=== PATIENT | male | born 1995 | race Caucasian/White ===

== ENCOUNTER 2018-08-25 15:22 | Inpatient (IN) | payer OTHER ==
[~2018-08-25] VITALS: Ht 172.7 cm; Wt 111.1 kg
[2018-08-25] MEDS ORDERED: PANTOPRAZOLE IV 80 MG in SOD CHLORIDE 0.9% 100 ML IV STA (16:24)
[2018-08-25] MEDS ORDERED: PANTOPRAZOLE IV 80 MG in SOD CHLORIDE 0.9% 100 ML IVPB STA (16:24)
[2018-08-25] MEDS ORDERED: MAGNESIUM SULFATE 2 GM, MULTIVITAMINS 10 ML, THIAMINE 100 MG, FOLIC ACID 1 MG in SOD CH... IV STA (16:27)
[2018-08-25] MEDS ORDERED: ONDANSETRON 4 MG INJ IV STA (16:27)
[2018-08-25] MEDS ORDERED: ALBU90AE INHALATION (17:21)
[2018-08-25] MEDS ORDERED: OCTREOTIDE 500 MCG in SOD CHLORIDE 0.9% 49 ML IV STA (17:54)
[2018-08-25] MEDS ORDERED: ONDANSETRON 4 MG INJ IV PRN ×2 (20:00→20:30)
[2018-08-25] MEDS ORDERED: ACETAMINOPHEN 325 MG TAB PO PRN ×2 (20:00→20:30)
[2018-08-25] MEDS ORDERED: BISACODYL (EC) 5 MG TAB PO PRN (20:30)
[2018-08-25] MEDS ORDERED: DOCUSATE SODIUM 100 MG CAP PO PRN (20:30)
[2018-08-25] MEDS ORDERED: OCTREOTIDE 1 MG in DEXTROSE 5% 95 ML IV SCH (20:30)
[2018-08-25] MEDS ORDERED: NACL 0.9% 3 ML SYG IV SCH (20:30)
[2018-08-25] MEDS ORDERED: LORAZEPAM 2 MG INJ IV PRN (22:00)
--- NOTE | 2018-08-25 22:54 | ERD ---
ER Documentation Chief Complaint Chief Complaint hematemesis x 2 today , melenas x 3 days, pt is alcoholic HPI This is a 23-year-old male with a past medical history of alcohol abuse. The patient indicates that for the past 3 days he has had very dark stools. He denies any abdominal pain. Indicates his last consumption of alcohol was 48 hours ago. He states that several hours prior to arrival he had a sudden onset of nausea. He then had 2 episodes of bright red hematemesis. He stated it was roughly 1 cup of blood that he vomited. He felt weak and lightheaded. He denies a headache. He denies any chest pain or pressure. He had no shortness of breath. He denies any palpitations but did state he felt very shaky. He states he is never had any history of alcohol withdrawal seizures. ROS All systems reviewed and are negative except as per history of present illness. Medications Home Meds Reported Medications Albuterol Sulfate (Proair Respiclick) 90 Mcg Aer.pow.ba, 1 PUFF INHALATION Q4 PRN for SHORTNESS OF BREATH, #1 BOTTLE 08/25/18 Allergies Allergies: Coded Allergies: No Known Allergy (Unverified , 08/25/18) PMhx/Soc Medical and Surgical Hx: pt denies Surgical Hx Hx Respiratory Disorders: Yes (asthma) Hx Alcohol Use: Yes Hx Substance Use: Yes Hx Tobacco Use: No Smoking Status: Never smoker Physical Exam Vitals Vital Signs Date Temp Pulse Resp B/P (MAP) Pulse Ox O2 O2 Flow FiO2 Time Delivery Rate 08/25/18 98.6 102 18 131/100 98 Room Air 20:03 (110) 08/25/18 105 16 125/99 97 Room Air 18:41 (108) 08/25/18 107 20 109/77 98 Room Air 18:00 (88) 08/25/18 111 20 126/92 100 Room Air 17:20 (103) 08/25/18 Nasal 2 16:53 Cannula 08/25/18 129 18 130/90 99 Room Air 16:49 (103) 08/25/18 98.1 132 18 146/98 99 15:29 (114) Physical Exam Constitutional:Well-developed. Well-nourished. HEENT:Normocephalic. Atraumatic.Pupils were equal round reactive to light. Moist mucous membranes.No tonsillar exudates. Conjunctival pallor Neck: No nuchal rigidity. No lymphadenopathy. No posterior cervical spine tenderness or step-offs. Respiratory: Not using accessory muscles of respiration.Lungs were clear to auscultation bilaterally. No rhonchi. No rales. No wheezing. Cardiovascular: Regular rate regular rhythm.No murmurs. No rubs were appreciated.S1, S2 normal. Distal pulses are palpable 2+ bilaterally. GI: Abdomen was soft. Hepatomegaly. Nontender. Non Distended. No pulsatile abdominal masses or bruits. No rebound. No guarding. Bowel sounds were present and normal. Rectal: Fecal occult blood test positive Muscle skeletal: Full range of motion of both the upper and lower extremities bi laterally.Normal muscle tone.No assymetrical calf tenderness or swelling. Skin: Pallor. No petechia, no purpura. No lesions on the palms or the soles of the feet. No maculopapular rash. NEURO: Patient was alert, awake, orientated x3.No facial droop. Gait observed and normal with no ataxia.Speech had regular rate and rhythm. No focal neurological deficits. [facility] Result Diagram: 08/25/18 1640 08/25/18 1640 Results 24 hrs Laboratory Tests Test 08/25/18 16:40 08/25/18 22:43 White Blood Count 13.6 10^3/ul Pending Red Blood Count 3.53 10^6/ul Pending Hemoglobin 10.7 g/dl Pending Hematocrit 30.8 % Pending Mean Corpuscular Volume 87.3 fl Pending Mean Corpuscular Hemoglobin 30.3 pg Pending Mean Corpuscular Hemoglobin Concent 34.7 g/dl Pending Red Cell Distribution Width 13.0 % Pending Platelet Count 189 10^3/UL Pending Mean Platelet Volume 11.7 fl Pending Immature Granulocytes % 0.700 % Neutrophils % 77.9 % Lymphocytes % 13.9 % Monocytes % 7.1 % Eosinophils % 0.1 % Basophils % 0.3 % Nucleated Red Blood Cells % 0.1 /100WBC Immature Granulocytes # 0.100 10^3/ul Neutrophils # 10.6 10^3/ul Lymphocytes # 1.9 10^3/ul Monocytes # 1.0 10^3/ul Eosinophils # 0.0 10^3/ul Basophils # 0.0 10^3/ul Nucleated Red Blood Cells # 0.0 10^3/ul Prothrombin Time 13.6 Sec Prothrombin Time Ratio 1.1 INR International Normalized Ratio 1.03 Activated Partial Thromboplast Time 24.4 Sec Urine Color [place]ERSON Urine Clarity CLEAR Urine pH 7.0 Urine Specific [place] 1.033 Urine Ketones TRACE mg/dL Urine Nitrite NEGATIVE mg/dL Urine Bilirubin NEGATIVE mg/dL Urine Urobilinogen NEGATIVE mg/dL Urine Leukocyte Esterase NEGATIVE Tami/ul Urine Hemoglobin NEGATIVE mg/dL Urine Glucose NEGATIVE mg/dL Urine Total Protein NEGATIVE mg/dl Sodium Level 139 mmol/L Potassium Level 4.2 mmol/L Chloride Level 103 mmol/L Carbon Dioxide Level 28 mmol/L Anion Gap 8 Blood Urea Nitrogen 24 mg/dl Creatinine 0.89 mg/dl Est Glomerular Filtrat Rate mL/min > 60 mL/min Glucose Level 134 mg/dl Calcium Level 9.6 mg/dl Total Bilirubin 1.4 mg/dl Direct Bilirubin 0.00 mg/dl Indirect Bilirubin 1.4 mg/dl Aspartate Amino Transf (AST/SGOT) 88 IU/L Alanine Aminotransferase (ALT/SGPT) 100 IU/L Alkaline Phosphatase 79 IU/L Troponin I < 0.012 ng/ml Total Protein 7.9 g/dl Albumin 4.3 g/dl Globulin 3.60 g/dl Albumin/Globulin Ratio 1.19 Amylase Level 73 U/L Lipase 95 U/L Urine Opiates Screen NEGATIVE Urine Barbiturates NEGATIVE Urine Amphetamines Screen NEGATIVE Urine Benzodiazepines Screen Negative Urine Cocaine Screen NEGATIVE Urine Cannabinoids NEGATIVE Ethyl Alcohol Level < 10.0 mg/dl Current Medications Medications Dose Sig/Rina Start Time Status Last (Trade) Ordered Route PRN Stop Time Admin Dose Reason Admin Pantoprazole 100 ml @ ONCE STAT 08/25/18 DC 08/25/18 80 mg/Sodium 400 mls/hr IVPB 16:24 08/25/18 17:19 Chloride 16:38 Pantoprazole 100 ml @ ONCE STAT 08/25/18 08/25/18 80 mg/Sodium 10 mls/hr IV 16:24 18:16 Chloride 08/26/18 02:23 Magnesium 1,015.2 ml Q2H2M STAT 08/25/18 DC 08/25/18 Sulfate 2 @ 500 mls/ IV 16:27 08/25/18 17:39 gm/ hr 18:28 Multivitamins 10 ml/Thiamine HCl 100 mg/Folic Acid 1 mg/Sodium Chloride Ondansetron 4 mg ONCE STAT 08/25/18 DC 08/25/18 HCl (Zofran IV 16:27 08/25/18 17:19 Inj) 16:28 Octreotide 50 ml @ 5 ONCE STAT 08/25/18 08/25/18 Acetate 500 mls/hr IV 17:54 17:54 mcg/ Sodium 08/26/18 03:53 Chloride Ondansetron 4 mg ER BRIDGE 08/25/18 HCl (Zofran PRN IV 20:00 Inj) NAUSEA/VOMITI 08/26/18 19:59 NG 650 mg ER BRIDGE 08/25/18 Acetaminophen PRN PO 20:00 (Tylenol .MILD PAIN 08/26/18 19:59 Tab) 1-3 OR TEMP Sodium 1,000 ml @ Q20H IV 08/25/18 Chloride 50 mls/hr 23:00 IV Flush 3 ml PER 08/25/18 (NS 3 ml) PROTOCOL IV 20:30 Ondansetron 4 mg Q6H PRN 08/25/18 HCl (Zofran IV 20:30 Inj) NAUSEA/VOMITI NG 650 mg Q6H PRN 08/25/18 Acetaminophen PO .PAIN 1-3 20:30 (Tylenol OR TEMP Tab) Docusate 100 mg Q12H PRN 08/25/18 Sodium PO 20:30 (Colace) .CONSTIPATION Bisacodyl 5 mg DAILY PRN 08/25/18 (Dulcolax) PO 20:30 .CONSTIPATION Pantoprazole 100 ml @ Q10H IV 08/26/18 80 mg/Sodium 10 mls/hr 04:00 Chloride Octreotide 100 ml @ 5 Q20H IV 08/25/18 Acetate 1 mls/hr 20:30 mg/ Dextrose Thiamine 200 mg DAILY IM 08/26/18 HCl 09:00 (Vitamin B1) 08/31/18 08:59 Lorazepam 1 mg Q4H PRN 08/25/18 (Ativan) IV CONTROL 22:00 WITHDRAWAL SYMPTOMS Procedures/MDM The patient presented to the emergency department with a presentation of upper gastrointestinal bleeding. My differential diagnosis included but was not limited to peptic ulcer disease, gastric or esophageal erosions, gastritis, esophageal varices, Miriam-Zuniga tear, tumor or arteriovenous malformations. The patient has a history of alcohol abuse and high risk for esophageal varices. Therefore obtain a chest radiograph and there was no free air underneath the diaphragm. I did start the patient on Protonix and octreotide drips. He was given antiemetics. He was also given a banana bag to prevent alcohol withdrawal seizures. The patient's hemoglobin was 10.7. He did not have any active hematemesis while in the emergency department. 12 Lead EKG tracing ordered and reviewed by myself showed: Sinus tachycardia 109 bpm and no arrhythmia. TN interval normal. QRS duration normal. No ST segment elevation No ST segment depression. No changes consistent with acute ischemia. Patient will be admitted to the hospitalist. I did feel the patient was stable to go to the telemetry service Critical Care: Time: 55 minutes Treatments/Evaluations: Close monitoring and treatment of unstable vital signs, cardiorespiratory, and neurologic status, while maintaining tight balance of fluid, respiratory, and cardiac interventions. Time does not include performing any of the above billable procedures. Departure Diagnosis: Primary Impression: Hematemesis Nausea presence: with nausea Qualified Codes: K92.0 - Hematemesis Additional Impression: Alcohol withdrawal Complication of substance-induced condition: uncomplicated Qualified Codes: F10.230 - Alcohol dependence with withdrawal, uncomplicated Condition: Serious KATYA HAWK MD Aug 25, 2018 22:54
[2018-08-25] MEDS ORDERED: SOD CHLORIDE 0.9% 1,000 ML IV SCH (23:00)
--- NOTE | 2018-08-25 23:45 | HP ---
Date/Time of Note Date/Time of Note DATE: 08/25/18 TIME: 23:44 Assessment/Plan VTE Prophylaxis SCD applied (from Nsg): Yes Pharmacological prophylaxis: NA/contraindicated Pharm contraindication: low risk/ambulating Lines/Catheters IV Catheter Type (from Nrsg): Saline Lock Assessment/Plan Hospital Course This is a 23-year-old male being admitted to the telemetry floor for: #1 acute GI bleed: Patient did have episodes of hematemesis and dark stools. Suspect likely secondary to alcohol use/peptic ulcer disease. Will keep the patient n.p.o. Continue Protonix and octreotide drip. CBC every 6 hours. Coagulation studies are within acceptable values. Type and screen. Will consult GI . #2 transaminitis: Liver ultrasound shows fatty liver, will monitor liver function test. Will check hepatitis studies. #3 EtOH abuse: Patient has a heavy drinking history. He did receive banana bag in the emergency department. Thiamine, multivitamin, folate daily. PRN Ativan for withdrawal symptoms. Consider Librium. #4 Mild dehydration: IV fluid hydration #5 normocytic anemia: Suspect secondary to underlying alcohol use, GI bleed. Will check iron stores. #6 DVT GI prophylaxis: SCDs, Protonix drip Further treatment strategy will be implemented as per the clinical course. Result Diagram: 08/25/18 2243 08/25/18 1640 Results 24hrs Laboratory Tests Test 08/25/18 16:40 08/25/18 22:43 White Blood Count 13.6 H 14.0 H Red Blood Count 3.53 L 3.11 L Hemoglobin 10.7 L 9.2 L Hematocrit 30.8 L 27.6 L Mean Corpuscular Volume 87.3 88.7 Mean Corpuscular Hemoglobin 30.3 29.6 Mean Corpuscular Hemoglobin Concent 34.7 33.3 Red Cell Distribution Width 13.0 13.2 Platelet Count 189 157 Mean Platelet Volume 11.7 H 11.2 H Immature Granulocytes % 0.700 H 0.900 H Neutrophils % 77.9 H 76.4 Lymphocytes % 13.9 L 14.4 L Monocytes % 7.1 8.0 Eosinophils % 0.1 0.1 Basophils % 0.3 0.2 Nucleated Red Blood Cells % 0.1 H 0.0 Immature Granulocytes # 0.100 H 0.120 H Neutrophils # 10.6 H 10.7 H Lymphocytes # 1.9 2.0 Monocytes # 1.0 H 1.1 H Eosinophils # 0.0 0.0 Basophils # 0.0 0.0 Nucleated Red Blood Cells # 0.0 0.0 Prothrombin Time 13.6 Prothrombin Time Ratio 1.1 INR International Normalized Ratio 1.03 Activated Partial Thromboplast Time 24.4 Urine Color [place] Urine Clarity CLEAR Urine pH 7.0 Urine Specific [place] 1.033 H Urine Ketones TRACE A Urine Nitrite NEGATIVE Urine Bilirubin NEGATIVE Urine Urobilinogen NEGATIVE Urine Leukocyte Esterase NEGATIVE Urine Hemoglobin NEGATIVE Urine Glucose NEGATIVE Urine Total Protein NEGATIVE Sodium Level 139 Potassium Level 4.2 Chloride Level 103 Carbon Dioxide Level 28 Anion Gap 8 Blood Urea Nitrogen 24 H Creatinine 0.89 Est Glomerular Filtrat Rate mL/min > 60 Glucose Level 134 Calcium Level 9.6 Total Bilirubin 1.4 H Direct Bilirubin 0.00 Indirect Bilirubin 1.4 H Aspartate Amino Transf (AST/SGOT) 88 H Alanine Aminotransferase (ALT/SGPT) 100 H Alkaline Phosphatase 79 Troponin I < 0.012 Total Protein 7.9 Albumin 4.3 Globulin 3.60 H Albumin/Globulin Ratio 1.19 Amylase Level 73 Lipase 95 Urine Opiates Screen NEGATIVE Urine Barbiturates NEGATIVE Urine Amphetamines Screen NEGATIVE Urine Benzodiazepines Screen Negative Urine Cocaine Screen NEGATIVE Urine Cannabinoids NEGATIVE Ethyl Alcohol Level < 10.0 H HPI/ROS Admit Date/Time Admit Date/Time Hx of Present Illness Chief complaint: Hematemesis x1 episode, black stool x3 days This is a 23 male with history of alcohol abuse who presented to the emergency department with hematemesis. Patient reports that he had an episode of bright red blood today one episode which was significant amount with clots. He states that over the last 3 days he has also had dark stools. He did report that earlier he had pain along the lower abdomen. He does report that he felt weak and lightheaded but denied any headaches. Denies any chest pain. In the emergency department patient was started on octreotide as well as Protonix drip. His last drink was yesterday. Allergies: NKDA Medications: None ROS Const: As per HPI Eyes : No pain discharge or redness or change in visual acuity ENT: No pain, sore throat, congestion, congestion, dysphagia or discharge Respiratory: No shortness of breath, cough, sputum, wheezing, or pleuritic pain Cardiovascular: No chest pain, palpitation, PND, or edema GI : As per HPI Genitourinary: No dysuria, hematuria, flank pain , discharge or CVA tenderness Musculoskeletal: No joint pain, back pain, neck pain, restricted range of motion in neck or joints Skin: No rash, bruising or hives Neuro: No headache, dizziness, syncope, seizure, focal weakness Endocrine: No polyuria, polydipsia, temperature intolerance Psych: No hallucination, depression, anxiety or suicidal ideation PMH/Family/Social Past Medical History Asthma Medications Current Medications Pantoprazole 80 mg/Sodium Chloride 100 ml @ 10 mls/hr ONCE STAT IV Last administered on 08/25/18at 18:16; Admin Dose 10 MLS/HR; Start 08/25/18 at 16:24; Stop 08/26/18 at 02:23 Octreotide Acetate 500 mcg/ Sodium Chloride 50 ml @ 5 mls/hr ONCE STAT IV Last administered on 08/25/18at 17:54; Admin Dose 5 MLS/HR; Start 08/25/18 at 17:54; Stop 08/26/18 at 03:53 Ondansetron HCl (Zofran Inj) 4 mg ER BRIDGE PRN IV NAUSEA/VOMITING; Start 08/25/18 at 20:00; Stop 08/26/18 at 19:59 Acetaminophen (Tylenol Tab) 650 mg ER BRIDGE PRN PO .MILD PAIN 1-3 OR TEMP; Start 08/25/18 at 20:00; Stop 08/26/18 at 19:59 Sodium Chloride 1,000 ml @ 50 mls/hr Q20H IV Last administered on 08/25/18at 23:03; Admin Dose 50 MLS/HR; Start 08/25/18 at 23:00 IV Flush (NS 3 ml) 3 ml PER PROTOCOL IV ; Start 08/25/18 at 20:30 Ondansetron HCl (Zofran Inj) 4 mg Q6H PRN IV NAUSEA/VOMITING; Start 08/25/18 at 20:30 Acetaminophen (Tylenol Tab) 650 mg Q6H PRN PO .PAIN 1-3 OR TEMP; Start 08/25/18 at 20:30 Docusate Sodium (Colace) 100 mg Q12H PRN PO .CONSTIPATION; Start 08/25/18 at 20:30 Bisacodyl (Dulcolax) 5 mg DAILY PRN PO .CONSTIPATION; Start 08/25/18 at 20:30 Pantoprazole 80 mg/Sodium Chloride 100 ml @ 10 mls/hr Q10H IV ; Start 08/26/18 at 04:00 Octreotide Acetate 1 mg/ Dextrose 100 ml @ 5 mls/hr Q20H IV ; Start 08/25/18 at 20:30 Thiamine HCl (Vitamin B1) 200 mg DAILY IM ; Start 08/26/18 at 09:00; Stop 08/31/18 at 08:59 Lorazepam (Ativan) 1 mg Q4H PRN IV CONTROL WITHDRAWAL SYMPTOMS; Start 08/25/18 at 22:00 Coded Allergies: No Known Allergy (Unverified , 08/25/18) Past Surgical History Past Surgical Hx: no surgical history Family History Significant Family History: no pertinent family hx Social History Alcohol Use: heavy Smoking Status: Never smoker Drug Use: none Exam/Review of Systems Vital Signs Vitals Vital Signs Date Temp Pulse Resp B/P (MAP) Pulse Ox O2 O2 Flow FiO2 Time Delivery Rate 08/25/18 98.6 102 18 131/100 98 Room Air 20:03 (110) 08/25/18 2 16:53 Exam Exam General: Patient is a pleasant male currently lying in bed in no acute distress HEENT: Atraumatic, normocephalic. The pupils are equal, round and reactive. Extraocular motor are intact, mucous membranes dry Neck: Supple with full range of motion. No rigidity or meningismus Chest: Nontender Lungs: Clear to auscultation bilaterally no crackles rales or wheezing Heart: Normal S1-S2, Regular rhythm and rate. No murmur, S3, or S4 Abdomen: Obese, soft , nontender, nondistended , bowel sounds are present. No guarding no rebound tenderness , No masses or organomegaly. No costovertebral temporal angle mass Extremities: Normal to inspection, no edema no cyanosis Neurologic: Normal mental status, speech normal, cranial nerves II through XII are intact, motor and sensory are intact, no focal weakness Additional Comments PROCEDURE: US Abdomen. CLINICAL INDICATION: elevated LFTs TECHNIQUE: Multiple real-time images were acquired of the patient's abdomen and retroperitoneum utilizing a high resolution transducer. COMPARISON: None FINDINGS: The liver demonstrates increased echogenicity. The liver is normal in size and no focal solid lesions are seen. The liver measures 14.2 cm in length. The portal vein is patent with normal direction of flow. No intrahepatic biliary dilatation is seen. No gallstones are identified within the gallbladder. There is no pericholecystic fluid or gallbladder wall thickening. The common bile duct measures 3 mm in maximal dimension. The pancreas is not well seen due to overlying bowel gas. No free fluid is identified. The right kidney is normal in size, and demonstrate normal echogenicity and cortical thickness. The right kidney measures 9.3 cm in long dimension. There is no evidence of hydronephrosis. There are no kidney stones. IMPRESSION: Fatty infiltration of the liver.. RPTAT: AA .Baudilio Wayne MD, Date Time Electronically viewed and signed by .Baudilio Wayne MD, MD on 08/25/2018 22:22 .S/ CC: JARETH PIERRE [id number] PROCEDURE: XR Chest AP portable CLINICAL INDICATION: Upper GI bleed TECHNIQUE: An AP portable radiograph of the chest was submitted. COMPARISON: None. FINDINGS: Support Hardware: None Cardiovascular: The cardiovascular silhouette appears unremarkable. Lung Ortiz: The lung ortiz appear clear with no nodule, alveolar infiltrate, or interstitial prominence evident. Pleural Spaces: No pneumothorax or pleural effusion is identified. Osseous Structures: The osseous structures appear intact. Soft Tissues: The soft tissues appear generous. IMPRESSION: Unremarkable portable chest. Physician Kayla Date Time Electronically viewed and signed by Physician Kayla on 08/25/2018 16:52 RH/ CC: KATYA HAWK MD [id number] JARETH PIERRE Aug 25, 2018 23:45
[2018-08-26] VITALS (30 sets, daily range): BP systolic 96–137; BP diastolic 58–82; PULSE 86–105; RESP 13–25; Ht 172.7 cm; Wt 111.1 kg
[2018-08-26] MEDS ORDERED: LORAZEPAM 2 MG INJ IV PRN (05:30)
[2018-08-26] MEDS ORDERED: THIAMINE 200 MG INJ IM SCH (09:00)
[2018-08-26] MEDS ORDERED: ONDANSETRON 4 MG INJ IV STA (09:40)
[2018-08-26] MEDS ORDERED: ONDANSETRON INJ 8 MG in SOD CHLORIDE 0.9% 50 ML IV STA (09:53)
[2018-08-26] MEDS ORDERED: ACETAMINOPHEN 650 MG SUPP PR PRN (10:00)
--- NOTE | 2018-08-26 10:01 | PN ---
Date/Time of Note Date/Time of Note DATE: 08/26/18 TIME: 10:00 Assessment/Plan VTE Prophylaxis Risk score (from Ns)>0 risk: 1 SCD applied (from Ns): No SCD contraindicated: low risk/ambulating Pharmacological prophylaxis: NA/contraindicated Pharm contraindication: bleeding Lines/Catheters IV C[facility]ter Type [facility]from [facility]): Saline Lock Assessment/Plan Hospital Course SUBJECTIVE: Lying in bed comfortably. No abdominal pain, nausea or vomiting. Patient did not have any further episode of hematemesis or black stool after admission. OBJECTIVE: Vital signs-see below PHYSICAL EXAM: Constitutional: Adequately built,not in acute distress. HEENT: Head atraumatic and normocephalic. Eyes: Extraocular muscles intact. Anicteric sclerae. Pupils equal bilaterally, reactive to light. NECK: Supple without lymph node. CHEST: Clear and good breath sounds equally. No wheezing. No rhonchi. HEART: S1, S2. Regular rate and rhythm. ABDOMEN: Soft/non tender with no rebound tenderness. Bowel sounds were present. EXTREMITIES: No cyanosis, clubbing or edema. NEUROLOGIC: Alert and oriented x3. No focal deficit. No sensory deficit. PSYCHOSOCIAL: No signs of depression. INTEGUMENTARY: No open wounds. ASSESSMENT AND PLAN:23 yo M w/EtOH abuse, here with sudden onset of one episode of dark red vomiting W/1 episode of black loose stool yesterday... Hematemesis/Melena -r/o Acute upper GI bleed sources including esophageal varices/bleeding ulcers versus other in light of alcoholism -GI consult for consideration for stat EGD -Since patient did not have any further episodes of GI bleed and his H&H is stable, patient does not need to be continued on octreotide drip. Please note that patient did receive a full dose of octreotide in the emergency room. -Continue Protonix ggt -NPO Acute blood loss anemia, likely secondary to GIB -Hemoglobin fairly stable. Will repeat in 8 hours and if it is less than 8.0, will transfuse PRBC. -Add iron panel to a.m. labs and treat accordingly. Leukocytosis, likely reactive -Monitor Transaminase elevation, likely secondary to fatty infiltration of liver -Advised on alcohol cessation. -Continue to monitor -Obtain abdominal CT Anemia with EtOH abuse -Currently H&H fairly stable. Will continue monitoring. -Add iron panel to am labs. will give 1 iv Ferrlecit 2/2gib EtOH abuse -cessation advised. SW consult. DVT prophylaxis: SCDs. PUD prophylaxis: Protonix Disposition: Patient will need emergent EGD evaluation to rule out esophageal varices. Patient with stable H&H, no further GI bleed, as such he can be downgraded back to medical surgical floor. Patient to continue Protonix drip. Left message to GI financial sales consultant for considering patient for EGD evaluation today. Patient was seen in collaboration with Dr. Bueno. Result Diagram: 08/26/18 0545 08/26/18 0546 Results 24hrs Laboratory Tests Test 08/25/18 16:40 08/25/18 22:43 08/26/18 05:45 08/26/18 05:46 White Blood Count 13.6 H 14.0 H 10.5 # Red Blood Count 3.53 L 3.11 L 2.99 L Hemoglobin 10.7 L 9.2 L 9.0 L Hematocrit 30.8 L 27.6 L 26.9 L Mean Corpuscular 87.3 88.7 90.0 Volume Mean Corpuscular 30.3 29.6 30.1 Hemoglobin Mean Corpuscular 34.7 33.3 33.5 Hemoglobin Concent Red Cell Distribution 13.0 13.2 13.2 Width Platelet Count 189 157 143 Mean Platelet Volume 11.7 H 11.2 H 11.2 H Immature Granulocytes 0.700 H 0.900 H 0.800 H % Neutrophils % 77.9 H 76.4 75.2 Lymphocytes % 13.9 L 14.4 L 15.5 Monocytes % 7.1 8.0 7.6 Eosinophils % 0.1 0.1 0.7 Basophils % 0.3 0.2 0.2 Nucleated Red Blood 0.1 H 0.0 0.0 Cells % Immature Granulocytes 0.100 H 0.120 H 0.080 H # Neutrophils # 10.6 H 10.7 H 7.9 H Lymphocytes # 1.9 2.0 1.6 Monocytes # 1.0 H 1.1 H 0.8 Eosinophils # 0.0 0.0 0.1 Basophils # 0.0 0.0 0.0 Nucleated Red Blood 0.0 0.0 0.0 Cells # Prothrombin Time 13.6 Prothrombin Time Ratio 1.1 INR International 1.03 Normalized Ratio Activated 24.4 Partial Thromboplast Time Urine Color GERSON Urine Clarity CLEAR Urine pH 7.0 Urine Specific [place] 1.033 H Urine Ketones TRACE A Urine Nitrite NEGATIVE Urine Bilirubin NEGATIVE Urine Urobilinogen NEGATIVE Urine Leukocyte NEGATIVE Esterase Urine Hemoglobin NEGATIVE Urine Glucose NEGATIVE Urine Total Protein NEGATIVE Sodium Level 139 140 Potassium Level 4.2 4.1 Chloride Level 103 106 Carbon Dioxide Level 28 28 Anion Gap 8 6 Blood Urea Nitrogen 24 H 22 H Creatinine 0.89 0.92 Est Glomerular Filtrat > 60 > 60 Rate mL/min Glucose Level 134 113 Calcium Level 9.6 8.6 Total Bilirubin 1.4 H 1.7 H Direct Bilirubin 0.00 0.00 Indirect Bilirubin 1.4 H 1.7 H Aspartate Amino 88 H 115 H Transf (AST/SGOT) Alanine 100 H 101 H Aminotransferase (ALT/ SGPT) Alkaline Phosphatase 79 57 Troponin I < 0.012 Total Protein 7.9 6.6 # Albumin 4.3 3.5 Globulin 3.60 H 3.10 Albumin/Globulin Ratio 1.19 1.12 Amylase Level 73 Lipase 95 Urine Opiates Screen NEGATIVE Urine Barbiturates NEGATIVE Urine Amphetamines NEGATIVE Screen Urine Benzodiazepines Negative Screen Urine Cocaine Screen NEGATIVE Urine Cannabinoids NEGATIVE Ethyl Alcohol Level < 10.0 H Hemoglobin A1c 5.1 Magnesium Level 2.4 Triglycerides Level 108 Cholesterol Level 174 LDL Cholesterol, 107 Calculated HDL Cholesterol 45 Cholesterol/HDL Ratio 3.8 Thyroid Stimulating 0.371 L Hormone (TSH) Hepatitis A Antibody POSITIVE H Total Hepatitis B Surface NEGATIVE Antigen Hepatitis B Surface NEGATIVE Antibody Hepatitis B Core NEGATIVE Total Antibody Hepatitis C Antibody NEGATIVE Exam/Review of Systems Exam Vitals Vital Signs Date Temp Pulse Resp B/P (MAP) Pulse Ox O2 O2 Flow FiO2 Time Delivery Rate 08/26/18 99.2 96 16 118/67 98 08:00 (84) 08/26/18 Room Air 05:53 08/25/18 2 16:53 Results Results 24hrs Laboratory Tests Test 08/25/18 16:40 08/25/18 22:43 08/26/18 05:45 08/26/18 05:46 White Blood Count 13.6 H 14.0 H 10.5 # Red Blood Count 3.53 L 3.11 L 2.99 L Hemoglobin 10.7 L 9.2 L 9.0 L Hematocrit 30.8 L 27.6 L 26.9 L Mean Corpuscular 87.3 88.7 90.0 Volume Mean Corpuscular 30.3 29.6 30.1 Hemoglobin Mean Corpuscular 34.7 33.3 33.5 Hemoglobin Concent Red Cell Distribution 13.0 13.2 13.2 Width Platelet Count 189 157 143 Mean Platelet Volume 11.7 H 11.2 H 11.2 H Immature Granulocytes 0.700 H 0.900 H 0.800 H % Neutrophils % 77.9 H 76.4 75.2 Lymphocytes % 13.9 L 14.4 L 15.5 Monocytes % 7.1 8.0 7.6 Eosinophils % 0.1 0.1 0.7 Basophils % 0.3 0.2 0.2 Nucleated Red Blood 0.1 H 0.0 0.0 Cells % Immature Granulocytes 0.100 H 0.120 H 0.080 H # Neutrophils # 10.6 H 10.7 H 7.9 H Lymphocytes # 1.9 2.0 1.6 Monocytes # 1.0 H 1.1 H 0.8 Eosinophils # 0.0 0.0 0.1 Basophils # 0.0 0.0 0.0 Nucleated Red Blood 0.0 0.0 0.0 Cells # Prothrombin Time 13.6 Prothrombin Time Ratio 1.1 INR International 1.03 Normalized Ratio Activated 24.4 Partial Thromboplast Time Urine Color GERSON Urine Clarity CLEAR Urine pH 7.0 Urine Specific [place] 1.033 H Urine Ketones TRACE A Urine Nitrite NEGATIVE Urine Bilirubin NEGATIVE Urine Urobilinogen NEGATIVE Urine Leukocyte NEGATIVE Esterase Urine Hemoglobin NEGATIVE Urine Glucose NEGATIVE Urine Total Protein NEGATIVE Sodium Level 139 140 Potassium Level 4.2 4.1 Chloride Level 103 106 Carbon Dioxide Level 28 28 Anion Gap 8 6 Blood Urea Nitrogen 24 H 22 H Creatinine 0.89 0.92 Est Glomerular Filtrat > 60 > 60 Rate mL/min Glucose Level 134 113 Calcium Level 9.6 8.6 Total Bilirubin 1.4 H 1.7 H Direct Bilirubin 0.00 0.00 Indirect Bilirubin 1.4 H 1.7 H Aspartate Amino 88 H 115 H Transf (AST/SGOT) Alanine 100 H 101 H Aminotransferase (ALT/ SGPT) Alkaline Phosphatase 79 57 Troponin I < 0.012 Total Protein 7.9 6.6 # Albumin 4.3 3.5 Globulin 3.60 H 3.10 Albumin/Globulin Ratio 1.19 1.12 Amylase Level 73 Lipase 95 Urine Opiates Screen NEGATIVE Urine Barbiturates NEGATIVE Urine Amphetamines NEGATIVE Screen Urine Benzodiazepines Negative Screen Urine Cocaine Screen NEGATIVE Urine Cannabinoids NEGATIVE Ethyl Alcohol Level < 10.0 H Hemoglobin A1c 5.1 Magnesium Level 2.4 Triglycerides Level 108 Cholesterol Level 174 LDL Cholesterol, 107 Calculated HDL Cholesterol 45 Cholesterol/HDL Ratio 3.8 Thyroid Stimulating 0.371 L Hormone (TSH) Hepatitis A Antibody POSITIVE H Total Hepatitis B Surface NEGATIVE Antigen Hepatitis B Surface NEGATIVE Antibody Hepatitis B Core NEGATIVE Total Antibody Hepatitis C Antibody NEGATIVE Medications Medication Current Medications IV Flush (NS 3 ml) 3 ml PER PROTOCOL IV ; Start 08/25/18 at 20:30 Ondansetron HCl (Zofran Inj) 4 mg Q6H PRN IV NAUSEA/VOMITING; Start 08/25/18 at 20:30 Pantoprazole 80 mg/Sodium Chloride 100 ml @ 10 mls/hr Q10H IV ; Start 08/26/18 at 04:00 Lorazepam (Ativan) 1 mg Q2 PRN IV CONTROL WITHDRAWAL SYMPTOMS; Start 08/26/18 at 05:30 Multivitamins 10 ml/Thiamine HCl 100 mg/Folic Acid 1 mg/Sodium Chloride 1,011.2 ml @ 125 mls/ hr DAILY@09 IVPB ; Start 08/27/18 at 09:00; Status UNV Acetaminophen (Tylenol Supp) 650 mg Q6H PRN [place] t>101; Start 08/26/18 at 10:00 Ondansetron HCl 8 mg/Sodium Chloride 54 ml @ 216 mls/hr ONCE STAT IV ; Start 08/26/18 at 09:53; Stop 08/26/18 at 10:07 SHADI HUA NP Aug 26, 2018 10:01
[2018-08-26] MEDS: PANTOPRAZOLE IV 80 MG in SOD CHLORIDE 0.9% 100 ML IV SCH ×2 (10:50→14:00)
[2018-08-26] MEDS: MULTIVITAMINS 10 ML, THIAMINE 100 MG, FOLIC ACID 1 MG in SOD CHLORIDE 0.9% 1,000 ML IVPB SCH (11:12)
[2018-08-26] MEDS ORDERED: SOD CHLORIDE 0.9% 100 ML ONE (11:35)
[2018-08-26] MEDS ORDERED: IOHEXOL 300MG/ML 150 ML BTL ONE (11:35)
[2018-08-26] MEDS ORDERED: SOD FERRIC GLUC COMPLX 125 MG in SOD CHLORIDE 0.9% 100 ML IVPB ONE (12:00)
--- NOTE | 2018-08-26 13:57 | CONS ---
Assessment/Plan Assessment/Plan Hospital Course (Demo Recall) Summary Assessment and Plan: Assessment: Hematemesis/melena -Rule out PUD versus hemorrhagic gastritis versus Miriam-Zuniga tear versus esophageal varices-less likely Normocytic anemia- likely multiple factorial with acute blood loss 2/2 to above Transaminitis with indirect hyperbilirubinemia -Discriminant function less than 32 -Common bile duct within normal limits noted on abdominal ultrasound and CT scan Hepatic steatosis -Counseled on weight loss with diet, exercise EtOH abuse -Drinks six 12 oz beer per day -Counseled on alcohol cessation Obesity Plan: Keep n.p.o. Continue PPI drip EGD today Endoscopy - risks/benefits/alternatives/indications of procedure and sedation/an esthesia discussed with patient who states understanding and gives informed consent to proceed. PARQ held and questions were answered. Patient seen in collaboration with Dr. Platt CC: REGGIE PLATT MD ; Consultation Date/Type/Reason Admit Date/Time Date of Consultation: Aug 26, 2018 Type of Consult Gastroenterology Reason for Consultation Hematemesis/melena Requesting Provider: A Date/Time of Note DATE: 08/26/18 TIME: 13:49 Hx of Present Illness This is a 23-year-old male with past medical history of alcohol abuse drinks six 12oz beers per day for the past 4 years who presented to the hospital with complaints of melena x3 days and one episode of hematemesis yesterday. Hemoglobin noted on admission was 10.7 recheck today 8.6 with normocytic indices, INR is 1.03 with elevated LFTs AST greater than ALT and indirect bilirubin. A liver ultrasound was obtained showing fatty infiltration of the liver no gallstones are identified within the liver, there is no pericholecystic fluid or gallbladder wall thickening. The common bile duct measures 3 mm in maximal dimension additionally CT abdomen pelvis without contrast was obtained again showing hepatic steatosis no focal intrahepatic masses are identified. There is no intra-or extrahepatic biliary dilation. The gallbladder is unremarkable by CT criteria. At time evaluation patient denies nausea/vomiting including further episodes of hematemesis. He denies abdominal pain, constipation, diarrhea, or hematochezia. He has never had an upper endoscopy Review of Systems: [A 12 system, review was conducted and is negative except as noted in the HPI or here.] Past Medical History Home Meds Reported Medications Albuterol Sulfate (Proair Respiclick) 90 Mcg Aer.pow.ba, 1 PUFF INHALATION Q4 PRN for SHORTNESS OF BREATH, #1 BOTTLE 08/25/18 Medications Current Medications IV Flush (NS 3 ml) 3 ml PER PROTOCOL IV ; Start 08/25/18 at 20:30 Ondansetron HCl (Zofran Inj) 4 mg Q6H PRN IV NAUSEA/VOMITING; Start 08/25/18 at 20:30 Pantoprazole 80 mg/Sodium Chloride 100 ml @ 10 mls/hr Q10H IV Last administered on 08/26/18at 10:50; Admin Dose 10 MLS/HR; Start 08/26/18 at 04:00 Lorazepam (Ativan) 1 mg Q2 PRN IV CONTROL WITHDRAWAL SYMPTOMS; Start 08/26/18 at 05:30 Multivitamins 10 ml/Thiamine HCl 100 mg/Folic Acid 1 mg/Sodium Chloride 1,011.2 ml @ 125 mls/ hr DAILY@09 IVPB Last administered on 08/26/18at 11:12; Admin Dose 125 MLS/HR; Start 08/26/18 at 12:00 Acetaminophen (Tylenol Supp) 650 mg Q6H PRN [place] t>101; Start 08/26/18 at 10:00 Allergies: Coded Allergies: No Known Allergy (Unverified , 08/25/18) Past Surgical History Past Surgical Hx: no surgical history Social History Alcohol Use: heavy Smoking Status: Former smoker Drug Use: none Exam/Review of Systems Exam Vitals Vital Signs Date Temp Pulse Resp B/P (MAP) Pulse Ox O2 O2 Flow FiO2 Time Delivery Rate 08/26/18 96 12:00 08/26/18 99.2 16 118/67 98 08:00 (84) 08/26/18 Room Air 05:53 08/25/18 2 16:53 Exam PHYSICAL EXAMINATION: GENERAL: Well developed, well nourished, alert & oriented x 3, in no acute distress SKIN: No lesions, no stigmata chronic liver disease, no evidence of bleeding diathesis HEAD: Normocephalic, atraumatic, no tenderness. EYES: Pupils equal reactive to light and accommodation, full extraocular movements, sclera clear, non-icteric, no discharge. EARS/NOSE AND THROAT: Ears normal, nose normal, oropharynx normal, oral membr anes well hydrated without lesions. NECK: Supple, no masses CHEST: Inspection within normal limits. CARDIOVASCULAR: Heart: Regular rate and rhythm RESPIRATORY: Lungs clear to auscultation and percussion, no wheezing, no rubs GASTROINTESTINAL AND LIVER: Abdomen: Soft, non tenderness, non-distended, no hernias, no masses, no organomegaly, no ascites, no guarding, no rebound tenderness, normoactive bowel sounds. Rectal: Deferred. EXTREMITIES: No cyanosis, clubbing or edema. Results Result Diagram: 08/26/18 1138 08/26/18 0546 Results 24hrs Laboratory Tests Test 08/25/18 16:40 08/25/18 22:43 08/26/18 05:39 08/26/18 05:45 White Blood Count 13.6 H 14.0 H 10.5 # Red Blood Count 3.53 L 3.11 L 2.99 L Hemoglobin 10.7 L 9.2 L 9.0 L Hematocrit 30.8 L 27.6 L 26.9 L Mean Corpuscular 87.3 88.7 90.0 Volume Mean Corpuscular 30.3 29.6 30.1 Hemoglobin Mean Corpuscular 34.7 33.3 33.5 Hemoglobin Concent Red Cell 13.0 13.2 13.2 Distribution Width Platelet Count 189 157 143 Mean Platelet Volume 11.7 H 11.2 H 11.2 H Immature 0.700 H 0.900 H 0.800 H Granulocytes % Neutrophils % 77.9 H 76.4 75.2 Lymphocytes % 13.9 L 14.4 L 15.5 Monocytes % 7.1 8.0 7.6 Eosinophils % 0.1 0.1 0.7 Basophils % 0.3 0.2 0.2 Nucleated Red Blood 0.1 H 0.0 0.0 Cells % Immature 0.100 H 0.120 H 0.080 H Granulocytes # Neutrophils # 10.6 H 10.7 H 7.9 H Lymphocytes # 1.9 2.0 1.6 Monocytes # 1.0 H 1.1 H 0.8 Eosinophils # 0.0 0.0 0.1 Basophils # 0.0 0.0 0.0 Nucleated Red Blood 0.0 0.0 0.0 Cells # Prothrombin Time 13.6 Prothrombin Time 1.1 Ratio INR International 1.03 Normalized Ratio Activated 24.4 Partial Thromboplast Time Urine Color GERSON Urine Clarity CLEAR Urine pH 7.0 Urine Specific 1.033 H [place] Urine Ketones TRACE A Urine Nitrite NEGATIVE Urine Bilirubin NEGATIVE Urine Urobilinogen NEGATIVE Urine Leukocyte NEGATIVE Esterase Urine Hemoglobin NEGATIVE Urine Glucose NEGATIVE Urine Total Protein NEGATIVE Sodium Level 139 Potassium Level 4.2 Chloride Level 103 Carbon Dioxide Level 28 Anion Gap 8 Blood Urea Nitrogen 24 H Creatinine 0.89 Est Glomerular > 60 Filtrat Rate mL/min Glucose Level 134 Calcium Level 9.6 Total Bilirubin 1.4 H Direct Bilirubin 0.00 Indirect Bilirubin 1.4 H Aspartate Amino 88 H Transf (AST/SGOT) Alanine 100 H Aminotransferase (AL T/SGPT) Alkaline Phosphatase 79 Troponin I < 0.012 Total Protein 7.9 Albumin 4.3 Globulin 3.60 H Albumin/Globulin 1.19 Ratio Amylase Level 73 Lipase 95 Urine Opiates Screen NEGATIVE Urine Barbiturates NEGATIVE Urine Amphetamines NEGATIVE Screen Urine Negative Benzodiazepines Screen Urine Cocaine Screen NEGATIVE Urine Cannabinoids NEGATIVE Ethyl Alcohol Level < 10.0 H Iron Level 44 Total Iron Binding 374 Capacity Percent Iron 12 L Saturation Ferritin 47.5 Hemoglobin A1c 5.1 Test 08/26/18 05:46 08/26/18 09:55 08/26/18 11:38 Sodium Level 140 Potassium Level 4.1 Chloride Level 106 Carbon Dioxide Level 28 Anion Gap 6 Blood Urea Nitrogen 22 H Creatinine 0.92 Est Glomerular > 60 Filtrat Rate mL/min Glucose Level 113 Calcium Level 8.6 Magnesium Level 2.4 Total Bilirubin 1.7 H Direct Bilirubin 0.00 Indirect Bilirubin 1.7 H Aspartate Amino 115 H Transf (AST/SGOT) Alanine 101 H Aminotransferase (AL T/SGPT) Alkaline Phosphatase 57 Total Protein 6.6 # Albumin 3.5 Globulin 3.10 Albumin/Globulin 1.12 Ratio Triglycerides Level 108 Cholesterol Level 174 LDL Cholesterol, 107 Calculated HDL Cholesterol 45 Cholesterol/HDL 3.8 Ratio Thyroid Stimulating 0.371 L Hormone (TSH) Hepatitis A Antibody POSITIVE H Total Hepatitis B Surface NEGATIVE Antigen Hepatitis B Surface NEGATIVE Antibody Hepatitis B Core NEGATIVE Total Antibody Hepatitis C Antibody NEGATIVE White Blood Count 9.9 Red Blood Count 2.90 L Hemoglobin 8.7 L 8.6 L Hematocrit 26.2 L 26.2 L Mean Corpuscular 90.3 Volume Mean Corpuscular 30.0 Hemoglobin Mean Corpuscular 33.2 Hemoglobin Concent Red Cell 13.4 Distribution Width Platelet Count 149 Mean Platelet Volume 11.8 H Immature 0.800 H Granulocytes % Neutrophils % 74.5 Lymphocytes % 17.0 Monocytes % 6.8 Eosinophils % 0.5 Basophils % 0.4 Nucleated Red Blood 0.0 Cells % Immature 0.080 H Granulocytes # Neutrophils # 7.3 Lymphocytes # 1.7 Monocytes # 0.7 Eosinophils # 0.1 Basophils # 0.0 Nucleated Red Blood 0.0 Cells # Medications Medication Current Medications IV Flush (NS 3 ml) 3 ml PER PROTOCOL IV ; Start 08/25/18 at 20:30 Ondansetron HCl (Zofran Inj) 4 mg Q6H PRN IV NAUSEA/VOMITING; Start 08/25/18 at 20:30 Pantoprazole 80 mg/Sodium Chloride 100 ml @ 10 mls/hr Q10H IV Last administered on 08/26/18at 10:50; Admin Dose 10 MLS/HR; Start 08/26/18 at 04:00 Lorazepam (Ativan) 1 mg Q2 PRN IV CONTROL WITHDRAWAL SYMPTOMS; Start 08/26/18 at 05:30 Multivitamins 10 ml/Thiamine HCl 100 mg/Folic Acid 1 mg/Sodium Chloride 1,011.2 ml @ 125 mls/ hr DAILY@09 IVPB Last administered on 08/26/18at 11:12; Admin Dose 125 MLS/HR; Start 08/26/18 at 12:00 Acetaminophen (Tylenol Supp) 650 mg Q6H PRN [place] t>101; Start 08/26/18 at 10:00 JUAN RAMON RODRIGUEZ Aug 26, 2018 13:57
[2018-08-26] MEDS ORDERED: SOD CHLORIDE 0.9% 250 ML IV* ONE (14:18)
--- NOTE | 2018-08-26 14:25 | QN ---
Documentation Comment Patient's H&H dropped to 8.6 from 10.7 in the last 18 hours. In light of acute GI bleed, recommend transfusing 1 unit. Start iron replacement. Patient is getting EGD evaluation today. SHADI HUA V. FITNESS AND WELLNESS COORDINATOR Aug 26, 2018 14:25
--- NOTE | 2018-08-26 17:46 | PREAC ---
Date/Time of Note Date/Time of Note DATE: 08/26/18 TIME: 17:46 Anesthesia Eval and Record Evaluation Time Pre-Procedure Interview DATE: 08/26/18 TIME: 17:46 Age 23 Sex male NPO: 8 hrs Preoperative diagnosis etoh withdrawal Planned procedure egd, colonoscopy Past Medical History Past Medical History: Includes Cardio: HTN Pulm: Asthma GI: GERD, Morbid obesity Heme: Anemia Surgery & Anesthesia Issues No known issue Meds Anticoagulation: No Beta Kemi within 24 hr: No Reason Beta Kemi not given: Pt. not on B-Kemi Reported Medications Albuterol Sulfate (Proair Respiclick) 90 Mcg Aer.pow.ba, 1 PUFF INHALATION Q4 PRN for SHORTNESS OF BREATH, #1 BOTTLE 08/25/18 Current Medications IV Flush (NS 3 ml) 3 ml PER PROTOCOL IV ; Start 08/25/18 at 20:30 Ondansetron HCl (Zofran Inj) 4 mg Q6H PRN IV NAUSEA/VOMITING; Start 08/25/18 at 20:30 Pantoprazole 80 mg/Sodium Chloride 100 ml @ 10 mls/hr Q10H IV Last administered on 08/26/18at 10:50; Admin Dose 10 MLS/HR; Start 08/26/18 at 04:00 Lorazepam (Ativan) 1 mg Q2 PRN IV CONTROL WITHDRAWAL SYMPTOMS; Start 08/26/18 at 05:30 Multivitamins 10 ml/Thiamine HCl 100 mg/Folic Acid 1 mg/Sodium Chloride 1,011.2 ml @ 125 mls/ hr DAILY@09 IVPB Last administered on 08/26/18at 11:12; Admin Dose 125 MLS/HR; Start 08/26/18 at 12:00 Acetaminophen (Tylenol Supp) 650 mg Q6H PRN [place] t>101; Start 08/26/18 at 10:00 Ferric Sodium Gluconate Complex 125 mg/Sodium Chloride 100 ml @ 100 mls/hr DAILY@1300 IVPB ; Start 08/27/18 at 16:00; Stop 08/29/18 at 13:59 Meds reviewed: Yes Allergies Coded Allergies: No Known Allergy (Unverified , 08/25/18) Allergies Reviewed: Yes Labs/Studies Labs Reviewed: Reviewed by anesthesiologist Result Diagram: 08/26/18 1601 08/26/18 0546 Laboratory Tests 08/26/18 05:46 08/26/18 16:01 test: N/A Pre-procedure Exam Last vitals Vital Signs Date Temp Pulse Resp B/P (MAP) Pulse Ox O2 O2 Flow FiO2 Time Delivery Rate 08/26/18 99.3 95 18 113/66 96 Room Air 17:04 (82) 08/25/18 2 16:53 Airway: Adequate mouth opening, Adequate thyromental dist Mallampati: Mallampati II Teeth: Normal Lung: Normal Heart: Normal ASA Physical Status ASA physical status: 3 Emergency: None Planned Anesthetic General/MAC: Mask, MAC Pre-operative Attestations Prior to commencing anesthesia and surgery, the patient was re-evaluated, there was verification of: *The patient's identity *The results of appropriate recent lab work and preoperative vital signs *The above evaluation not changing prior to induction *Anesthetic plan, risk benefits, alternative and complications discussed with patient/family; questions answered; patient/family understands, accepts and wishes to proceed. DEEPTHI LEGGETT Aug 26, 2018 17:46
[2018-08-26] MEDS ORDERED: PROPOFOL 40 ML ONE (17:48)
[2018-08-26] MEDS: METOCLOPRAMIDE 10 MG TAB PO SCH (18:49)
[2018-08-27 00:50] VITALS: BP 135/84; PULSE 103; RESP 18
[2018-08-27] MEDS: METOCLOPRAMIDE 10 MG TAB PO SCH ×3 (01:11→12:03)
[2018-08-27 01:32] VITALS: BP 124/72; PULSE 104; RESP 18
[2018-08-27 01:50] VITALS: BP 115/69; PULSE 100; RESP 18
[2018-08-27] MEDS ORDERED: PANTOPRAZOLE (EC) 40 MG TAB PO SCH (06:00)
[2018-08-27 07:23] VITALS: BP 116/58; PULSE 98; RESP 19
[2018-08-27] MEDS: MULTIVITAMINS 10 ML, THIAMINE 100 MG, FOLIC ACID 1 MG in SOD CHLORIDE 0.9% 1,000 ML IVPB SCH (08:55)
[2018-08-27 14:12] VITALS: BP 119/66; PULSE 95; RESP 19
--- NOTE | 2018-08-27 14:50 | PDOCDIS ---
Discharge Instructions CONDITION [id number] Patient Condition: [id number] Stable HOME CARE INSTRUCTIONS: [id number] Diet Instructions: [id number] Regular FOLLOW UP/APPOINTMENTS Follow-up Plan Follow-up with on friday for EGD biopsy result-Recommed repeat EGD in 8 weeks Denise Platt MD Specialty Gastroenterology Comments Office Address [id number] [address] Office Alcohol cessation We will up with primary care physician in 1 week SHADI HUA NP Aug 27, 2018 14:50
[2018-08-27] MEDS ORDERED: METO10TA3 PO (14:53)
[2018-08-27] MEDS ORDERED: SUCR1TAB56 PO (14:53)
[2018-08-27] MEDS ORDERED: THIA50TA7 PO (14:53)
[2018-08-27] MEDS ORDERED: PANT40TA4 PO (14:53)
[2018-08-27] MEDS ORDERED: DOCU-144 PO (14:59)
[2018-08-27] MEDS ORDERED: FER325 PO (14:59)
--- NOTE | 2018-08-27 15:01 | PN ---
Date/Time of Note Date/Time of Note DATE: 08/27/18 TIME: 14:53 Assessment/Plan VTE Prophylaxis Risk score (from Nsg)>0 risk: 1 SCD applied (from Ns): No SCD contraindicated: low risk/ambulating Pharmacological prophylaxis: NA/contraindicated Pharm contraindication: bleeding Lines/Catheters IV [facility]from [facility] Peripheral IV Assessment/Plan Assessment/Plan Assessment: Hematemesis/melena Status post EGD 08/26/2018 -Moderate gastritis -Moderate sized hiatal hernia -Severe ulcerative esophagitis Normocytic anemia- likely multiple factorial with acute blood loss 2/2 to above Transaminitis with indirect hyperbilirubinemia -Discriminant function less than 32 -Common bile duct within normal limits noted on abdominal ultrasound and CT scan Hepatic steatosis -Counseled on weight loss with diet, exercise EtOH abuse -Drinks six 12 oz beer per day -Counseled on alcohol cessation Obesity Plan: Review pathology when available Continue Reglan PPI 3 times daily and Carafate 4 times daily for 2 months Follow-up in GI clinic for EGD in 8 weeks to assess healing of ulceration Quit drinking GERD diet Patient seen in collaboration with Dr. Platt Subjective: Patient is feeling well. He denies abdominal pain, hematemesis, nausea or vomiting. He is tolerating diet well. Hemoglobin is stable. No evidence of GI bleeding. Results of EGD discussed with the patient. Recommend GERD diet. Quitting alcohol. Follow-up EGD in 8 weeks to assess healing of esophageal ulceration. She verbalizes understanding. GI standpoint patient is adequate for outpatient management. PHYSICAL EXAMINATION: GENERAL: Well developed, well nourished, obese, alert & oriented x 3, in no acute distress SKIN: No lesions, no stigmata chronic liver disease, no evidence of bleeding diathesis LYMPHATIC: No palpable lymphadenopathy. HEAD: Normocephalic, atraumatic, no tenderness. EYES: Pupils equal reactive to light and accommodation, full extraocular movemen ts, sclera clear, non-icteric, no discharge. EARS/NOSE AND THROAT: Ears normal, nose normal, oropharynx normal, oral membranes well hydrated without lesions. NECK: Supple, no masses, thyroid normal, JVP within normal limits, carotids normal without bruits. CHEST: Inspection within normal limits. CARDIOVASCULAR: Heart: Regular rate and rhythm, no murmurs, gallops or rubs. Peripheral pulses present within normal limits, no cyanosis, clubbing or edemas. No pulsatile abdominal mass RESPIRATORY: Lungs clear to auscultation and percussion, no wheezing, no rubs GASTROINTESTINAL AND LIVER: Abdomen: Soft, non tenderness, non-distended, no hernias, no masses, no organomegaly, no ascites, no guarding, no rebound tenderness, normoactive bowel sounds. Rectal: Deferred. GENITOURINARY: [Male genitalia within normal limits. EXTREMITIES: No cyanosis, clubbing or edema. Result Diagram: 08/27/18 0525 08/26/18 0546 Results 24hrs Laboratory Tests Test 08/26/18 16:01 08/26/18 19:58 08/26/18 20:00 08/27/18 05:25 White Blood Count 8.8 Red Blood Count 2.78 L Hemoglobin 8.4 L 8.4 L 8.8 L Hematocrit 25.2 L 25.0 L 27.2 L Mean Corpuscular 90.6 Volume Mean Corpuscular 30.2 Hemoglobin Mean Corpuscular 33.3 Hemoglobin Concent Red Cell 13.4 Distribution Width Platelet Count 141 Mean Platelet Volume 11.8 H Immature 0.800 H Granulocytes % Neutrophils % 75.1 Lymphocytes % 15.6 Monocytes % 7.3 Eosinophils % 0.7 Basophils % 0.5 Nucleated Red Blood 0.0 Cells % Immature 0.070 H Granulocytes # Neutrophils # 6.6 Lymphocytes # 1.4 Monocytes # 0.6 Eosinophils # 0.1 Basophils # 0.0 Nucleated Red Blood 0.0 Cells # Stool Occult Blood POSITIVE Exam/Review of Systems Exam Vitals Vital Signs Date Temp Pulse Resp B/P (MAP) Pulse Ox O2 O2 Flow FiO2 Time Delivery Rate 08/27/18 98.6 95 19 119/66 97 Room Air 14:12 (83) 08/25/18 2 16:53 Intake and Output 08/26/18 08/26/18 08/27/18 1515:00 23:00 07:00 IntakeIntake Total 628.5 ml 753.7 ml 950 ml OutputOutput Total 450 ml BalanceBalance 628.5 ml 303.7 ml 950 ml Results Results 24hrs Laboratory Tests Test 08/26/18 16:01 08/26/18 19:58 08/26/18 20:00 08/27/18 05:25 White Blood Count 8.8 Red Blood Count 2.78 L Hemoglobin 8.4 L 8.4 L 8.8 L Hematocrit 25.2 L 25.0 L 27.2 L Mean Corpuscular 90.6 Volume Mean Corpuscular 30.2 Hemoglobin Mean Corpuscular 33.3 Hemoglobin Concent Red Cell 13.4 Distribution Width Platelet Count 141 Mean Platelet Volume 11.8 H Immature 0.800 H Granulocytes % Neutrophils % 75.1 Lymphocytes % 15.6 Monocytes % 7.3 Eosinophils % 0.7 Basophils % 0.5 Nucleated Red Blood 0.0 Cells % Immature 0.070 H Granulocytes # Neutrophils # 6.6 Lymphocytes # 1.4 Monocytes # 0.6 Eosinophils # 0.1 Basophils # 0.0 Nucleated Red Blood 0.0 Cells # Stool Occult Blood POSITIVE Medications Medication Current Medications IV Flush (NS 3 ml) 3 ml PER PROTOCOL IV ; Start 08/25/18 at 20:30 Ondansetron HCl (Zofran Inj) 4 mg Q6H PRN IV NAUSEA/VOMITING; Start 08/25/18 at 20:30 Lorazepam (Ativan) 1 mg Q2 PRN IV CONTROL WITHDRAWAL SYMPTOMS; Start 08/26/18 at 05:30 Multivitamins 10 ml/Thiamine HCl 100 mg/Folic Acid 1 mg/Sodium Chloride 1,011.2 ml @ 125 mls/ hr DAILY@09 IVPB Last administered on 08/27/18at 08:55; Admin Dose 125 MLS/HR; Start 08/26/18 at 12:00 Acetaminophen (Tylenol Supp) 650 mg Q6H PRN AK t>101; Start 08/26/18 at 10:00 Ferric Sodium Gluconate Complex 125 mg/Sodium Chloride 100 ml @ 100 mls/hr DAILY@1300 IVPB ; Start 08/27/18 at 16:00; Stop 08/29/18 at 13:59 Pantoprazole (Protonix Tab) 40 mg BID@06,18 PO Last administered on 08/27/18at 06:18; Admin Dose 40 MG; Start 08/27/18 at 06:00 Metoclopramide HCl (Reglan) 10 mg Q6 PO Last administered on 08/27/18at 12:03; Admin Dose 10 MG; Start 08/26/18 at 18:30 BECCA TOLLIVER NP Aug 27, 2018 15:01
--- NOTE | 2018-08-27 15:03 | DS ---
Date/Time of Note Date/Time of Note DATE: 08/27/18 TIME: 14:56 Discharge Summary Admission/Discharge Info Admit Date/Time Aug 25, 2018 at 19:53 Discharge Date/Time Discharge Diagnosis upper GI bleed w/ulcerative esophagitis Acute blood loss anemia, likely secondary to GIB.stable Ulcerative esophagitis/gastritis. Transaminase elevation, likely secondary to fatty infiltration of liver Anemia with EtOH abuse EtOH abuse Obesity Patient Condition: Stable Consults Procedures 08/26/2018: EGD: Impression: Ulcerative esophagitis/gastritis Hospital Course 23 yo M w/EtOH abuse, here with sudden onset of one episode of dark red vomiting W/1 episode of black loose stool x1 day duration. Patient was started on Protonix drip. He was also given a dose of octreotide. Patient did not have any further bleeding in the hospital. He was also transfused with a unit of PRBC. H&H remained stable thereafter. He was also given iron supplement. Patient was given banana bag/thiamine supplementation. Patient did not have any alcohol withdrawal. He was counseled on cessation. Patient then underwent EGD on 08/26/2018 with the findings of ulcerative esophagitis and gastritis. Recommendation was to continue patient on Protonix, Carafate and Reglan. Patient was started on a diet which he was able to tolerate. At this time, patient with no further bleeding. His H&H is stable. He is not in any alcohol withdrawal. He is very eager to be discharged home. Patient was recommended to follow-up with airframe technical officer on Friday to get biopsy result. He was also recommended to have a repeat EGD in 8 weeks. Patient verbalized understanding. Approximately 60 m spent on coordinating the discharge on this patient. Patient was seen in collaboration with Dr. Arriola. Home Meds Active Scripts Sucralfate* (Carafate*) 1 Gm Tab, 1 GM PO AC MEALS AND BEDTIME, #120 TAB Prov:HUA,SHADI V. BLEACH TESTER 08/27/18 Thiamine* (Thiamine*) 50 Mg Tablet, 100 MG PO DAILY, #30 TAB Prov:HUA,SHADI V. BLEACH TESTER 08/27/18 Metoclopramide Hcl* (Metoclopramide Hcl*) 10 Mg Tablet, 10 MG PO Q6, #60 TAB Prov:HUA,SHADI V. BLEACH TESTER 08/27/18 Pantoprazole* (Pantoprazole*) 40 Mg Tablet., 40 MG PO BID@, #60 TAB 1 Refill Prov:SHADI HUA VReena ANDERSON 08/27/18 Reported Medications Albuterol Sulfate (Proair Respiclick) 90 Mcg Aer.pow.ba, 1 PUFF INHALATION Q4 PRN for SHORTNESS OF BREATH, #1 BOTTLE 08/25/18 Follow-up Plan Follow-up with on friday for EGD biopsy result-Recommed repeat EGD in 8 weeks Denise Platt MD Specialty Gastroenterology Comments Office Address [id number] [facility] [place] [address] Office Alcohol cessation We will up with primary care physician in 1 week Primary Care Provider Not On Staff Doctor Pending Labs Laboratory Tests Test 08/26/18 16:01 08/26/18 19:58 08/26/18 20:00 08/27/18 05:25 White Blood 8.8 Count 10^3/ul (4.8-10 .8) Red Blood 2.78 Count 10^6/ul (4.70-6 .10) Hemoglobin 8.4 8.4 8.8 g/dl (14.0-18.0 g/dl (14.0-18. g/dl (14.0-18. ) 0) 0) Hematocrit 25.2 25.0 27.2 % (42.0-52.0) % (42.0-52.0) % (42.0-52.0) Mean 90.6 Corpuscular fl (82.0-101.0) Volume Mean 30.2 Corpuscular pg (29.0-33.0) Hemoglobin Mean 33.3 Corpuscular g/dl (32.0-37.0 Hemoglobin Conc ) ent Red Cell 13.4 Distribution % (11.5-14.5) Width Platelet Count 141 10^3/UL (140-41 5) Mean Platelet 11.8 Volume fl (7.4-10.4) Immature 0.800 Granulocytes % % (0.001-0.429) Neutrophils % 75.1 % (39.0-77.0) Lymphocytes % 15.6 % (15.0-51.0) Monocytes % 7.3 % (0.0-11.0) Eosinophils % 0.7 % (0.0-7.0) Basophils % 0.5 % (0.0-2.0) Nucleated Red 0.0 Blood Cells % /100WBC (0.0-0. 0) Immature 0.070 Granulocytes # 10^3/ul (0.0-0. 031) Neutrophils # 6.6 10^3/ul (1.6-7. 5) Lymphocytes # 1.4 10^3/ul (0.8-2. 9) Monocytes # 0.6 10^3/ul (0.3-0. 9) Eosinophils # 0.1 10^3/ul (0.0-0. 5) Basophils # 0.0 10^3/ul (0.0-0. 1) Nucleated Red 0.0 Blood Cells # 10^3/ul (0.0-0. 0) Stool Occult POSITIVE (NEGA Blood TIVE) SHADI HUA NP Aug 27, 2018 15:03
--- NOTE | 2018-08-27 15:20 | PAC ---
Date/Time of Note Date/Time of Note DATE: 08/27/18 TIME: 15:20 Post-Anesthesia Notes Post-Anesthesia Note Last documented vital signs Vital Signs Date Temp Pulse Resp B/P (MAP) Pulse Ox O2 O2 Flow FiO2 Time Delivery Rate 08/27/18 98.6 95 19 119/66 97 Room Air 14:12 (83) 08/25/18 2 16:53 Activity: WNL Respiratory function: WNL Cardiovascular function: WNL Mental status: Baseline Pain reasonably controlled: Yes Hydration appropriate: Yes Nausea/Vomiting absent: Yes DEEPTHI LEGGETT Aug 27, 2018 15:20
[2018-08-27] MEDS ORDERED: SOD FERRIC GLUC COMPLX 125 MG in SOD CHLORIDE 0.9% 100 ML IVPB SCH (16:00)
== END 2018-08-27 16:35 | disposition home or self-care (01) | DRG 381 ==
LOC: E/R 15:22 → 5EC 19:53 → CANRESERV 08-26 05:11 → EDBEDREQTM 08-26 05:13 → EDBEDREQ 08-26 05:13 → EDBEDREQSVC 08-26 05:13 → ICU 08-26 09:17 → 2NE 08-26 13:35
PROVIDERS: ADMIT Family Medicine; ATTEND Family Medicine
PROC: 30233N1 Transfusion of Nonautologous Red Blood Cells into Peripheral Vein, Percutaneous Approach (ICD-10-PCS; 2018-08-26)
PROC: 0DB68ZX Excision of Stomach, Via Natural or Artificial Opening Endoscopic, Diagnostic (ICD-10-PCS; principal; 2018-08-26 17:30)
DX: K22.11 Ulcer of esophagus with bleeding (principal); D62 Acute posthemorrhagic anemia; K29.71 Gastritis, unspecified, with bleeding; E66.01 Morbid (severe) obesity due to excess calories; J45.909 Unspecified asthma, uncomplicated; Z68.37 Body mass index [BMI] 37.0-37.9, adult; F10.10 Alcohol abuse, uncomplicated; I10 Essential (primary) hypertension; K44.9 Diaphragmatic hernia without obstruction or gangrene; K76.0 Fatty (change of) liver, not elsewhere classified; E86.0 Dehydration; Z87.891 Personal history of nicotine dependence
CPT/HCPCS: 36430; 71045; 74178; 76705; 80053; 80061; 80307; 81003; 82150; 82270; 82728; 83036; 83540; 83690; 83735; 84443; 84484; 85014; 85018; 85025; 85610; 85730; 86704; 86706; 86708; 86709; 86803; 86850; 86900; 86901; 86920; 87081; 87340; 88305; 88312; 93005; 96365; 96366; 96368; 96375; C9113; J2354; J2405; J2916; J3411; J3475; J7030; J7040; P9016; Q9967